=== PATIENT | male | born 1990 | race Caucasian/White ===

== ENCOUNTER 2019-01-08 13:20 | Emergency (ER) | payer OTHER ==
[2019-01-08] MEDS ORDERED: Ondansetron 4 MG/2 ML SDV IVPUSH ONE (13:45)
[2019-01-08] MEDS ORDERED: Sodium Chloride 0.9% 1,000 ML IV SCH (13:45)
[2019-01-08] MEDS ORDERED: Sodium Chloride 0.9% 10 ML Syringe FLUSH PRN ×2 (13:45→13:49)
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
[2019-01-08] MEDS ORDERED: Iopamidol 755 Mg/ML 100 ML Bottle IVPUSH ONE (13:49)
[2019-01-08] MEDS ORDERED: Sodium Chloride 0.9% 100 ML IV SCH (14:00)
--- NOTE | 2019-01-08 14:50 | CT ---
CT cervical spine Technique: Multiple axial sections were obtained from above C1 inferiorly to the bottom of T1. Reconstructed coronal and sagittal images were obtained. Comparison: No prior cervical spine exam. Findings: Vertebral body heights and disc spaces are maintained. Vertebral bodies and posterior arches are intact with no fracture being seen. No bony central or bony neural foraminal stenosis is seen. No abnormal subluxation is seen on the reconstructed sagittal images. Impression: 1. Nothing acute is appreciated on CT study of the cervical spine. Diagnostic code #1
--- NOTE | 2019-01-08 14:50 | CT ---
CT chest Technique: Multiple axial sections through the chest were obtained. Intravenous contrast was utilized. Comparison: No prior chest CT. Findings: Aorta appears unremarkable. No mediastinal fluid or adenopathy is seen. No axillary adenopathy is noted. No pericardial fluid is seen. Lungs show no acute parenchymal change. No pleural effusions are seen. No pneumothorax is identified. No discrete rib fracture is seen. Vertebral body heights are maintained within the thoracic spine. No discrete fracture or abnormal subluxation is seen. Lateral reconstructed images of the sternum appear intact. Impression: 1. Nothing acute is appreciated on CT study of the chest. Diagnostic code #1 CT abdomen and pelvis Technique: Multiple axial sections were obtained from above the dome of the diaphragm inferiorly through the pubic symphysis. Intravenous contrast was utilized. No oral contrast has been given. Comparison: No prior abdominal imaging is available. Findings: Liver contains no focal abnormality. Gallbladder shows no calcified gallstones. Spleen appears within normal limits. Small nodule medial to the spleen compatible with accessory splenic tissue is incidentally noted. Adrenal glands show no nodule. Kidneys show symmetric contrast enhancement and appear unremarkable. Pancreas is within normal limits. Aorta shows no aneurysm. No retroperitoneal adenopathy is seen. Appendix is seen and is normal in size. No pelvic mass or adenopathy is seen. No free fluid or inflammatory change is seen. Mild increased stool is noted throughout colon. Delayed images show contrast within distal ureters and within the bladder. Bone window settings were reviewed which show no acute osseous abnormality. Impression: 1. Mild increased stool within colon. 2. Nothing acute is appreciated on CT study of the abdomen and pelvis. Diagnostic code #2
--- NOTE | 2019-01-08 14:50 | CT ---
Head CT Technique: Multiple axial sections through the brain were obtained. Intravenous contrast was not utilized. Comparison: No prior intracranial imaging. Findings: Ventricles along with basal cisterns and sulci over the convexities appear within normal limits for the patient's age. No abnormal parenchymal densities are seen. No evidence of intracranial hemorrhage. No midline shift or mass effect is seen. Bone window settings were reviewed which show mild areas of mucosal thickening within the ethmoid and sphenoid sinuses. Mastoid sinuses are clear. No acute calvarial abnormality is seen. Impression: 1. Slight areas of mucosal thickening within the paranasal sinuses believed to be pre-existing and representing mild chronic sinusitis. 2. Nothing acute is appreciated on noncontrast head CT exam. Diagnostic code #2
== END 2019-01-08 15:46 | disposition home or self-care (01) ==
LOC: JD.ED 13:20
DX: S00.93XA Contusion of unspecified part of head, initial encounter (principal); S20.219A Contusion of unspecified front wall of thorax, initial encounter; V54.5XXA Driver of pick-up truck or van injured in collision with heavy transport vehicle or bus in traffic accident, initial encounter; Y92.410 Unspecified street and highway as the place of occurrence of the external cause
CPT/HCPCS: 36415; 70450; 71260; 72125; 74177; 80053; 85025; 96361; 96374; 99285; J2405; J7030; J7040; Q9967

== ENCOUNTER 2021-05-13 06:28 | Emergency (ER) | payer SELFPAY ==
[2021-05-13] MEDS ORDERED: Sodium Chloride 0.9% 10 ML Syringe FLUSH PRN (07:39)
[2021-05-13] MEDS ORDERED: HYDROmorphone 1 MG/ML Syringe IVPUSH ONE (07:40)
[2021-05-13] MEDS ORDERED: Propofol 200 MG/20 ML SDV ONE (08:20)
[2021-05-13] MEDS ORDERED: Midazolam 1 MG/ML 2 ML SDV ONE (08:21)
[2021-05-13] MEDS ORDERED: fentaNYL 100 MCG/2 ML SDV ONE (08:22)
[2021-05-13] MEDS ORDERED: Lactated Ringers 1,000 ML IV ONE (09:13)
== END 2021-05-13 09:35 | disposition home or self-care (01) ==
LOC: JD.ED 06:28
DX: S43.005A Unspecified dislocation of left shoulder joint, initial encounter (principal); W01.0XXA Fall on same level from slipping, tripping and stumbling without subsequent striking against object, initial encounter
CPT/HCPCS: 23650; 73020; 73030; 96374; 99283; J1170; J2704; J7120; 01620; 99284; J2250; J3010